=== PATIENT | male | born 1960 | race African-American/Black ===

== ENCOUNTER 2017-06-12 00:05 | Emergency (ER) | payer OTHER ==
[~2017-06-12] VITALS: Ht 182.9 cm; Wt 77.1 kg
--- NOTE | ~2017-06-12 | EKG ---
[address] [place] [employer] [place] [address] ELECTROCARDIOGRAM REPORT Name: HATTIE CORTES Room #: DEP ALANNAH Tanner#: [id number] Admission: 06/12/17 Attend Phys: Discharge: 06/12/17 Date of : 58 Report #: [id number] THIS REPORT FOR: //name// [facility] ED Test Date: 2017-06-12 Test Time: 00:42:00 Pat Name: HATTIE CORTES Department: Room: Gender: M International Accountant: puneet : 1960 Requested By: Dwayne Miranda Order Number: [id number] MD: Rigoberto Johns Measurements Intervals Bridger Rate: 73 P: 40 TX: 156 QRS: -14 QRSD: 94 T: 2 QT: 365 QTc: 403 Interpretive Statements Sinus rhythm Borderline T wave abnormalities No previous ECG available for comparison Electronically Signed On 06-12-2017 8:24:34 REHABILITATION THERAPY AIDE by Rigoberto Johns [email or web address] <ELECTRONICALLY SIGNED> By: Rigoberto Johns MD, [facility] 06/12/17 0824 0042 0042 Rigoberto Johns MD, FACC /EPI
[2017-06-12 01:01] LABS: HEMATOCRIT 35.5 % (42.0-52.0); HEMOGLOBIN 12.1 gm/dL (14.0-18.0); RBC 3.66 mil/uL (4.50-6.00); RDW 14.2 % (10.5-14.5); WBC 4.5 thou/uL (4.0-11.0)
[2017-06-12 01:04] LABS: ANION GAP 9 mmol/L (7-16); BUN 12 mg/dL (7-18); CALCIUM 8.7 mg/dL (8.5-10.1); CHLORIDE 109 mmol/L (98-107); CO2 25 mmol/L (21-32); CREATININE 1.1 mg/dL (0.7-1.3); GLUCOSE 162 mg/dL (74-106); POTASSIUM 3.3 mmol/L (3.5-5.1); SODIUM 143 mmol/L (136-145)
[2017-06-12 01:12] LABS: TROPONIN-I < 0.04 ng/mL (<0.06)
[2017-06-12 01:47] VITALS: BP 130/78
== END 2017-06-12 02:07 | disposition home or self-care (01) ==
LOC: ER 00:05
PROVIDERS: Emergency Medicine
DX: R42 Dizziness and giddiness (principal); F17.210 Nicotine dependence, cigarettes, uncomplicated